=== PATIENT | male | born 1975 | race American Indian/Alaskan Native ===

== ENCOUNTER 2016-12-28 22:24 | Emergency (ER) | payer OTHER ==
[2016-12-28] MEDS ORDERED: NACL 0.9% 1000 ML 1,000 ML IV ONE (23:18)
--- NOTE | 2016-12-28 23:28 | Emergency Department Report ---
ED Seizure HPI - General Chief Complaint: Seizure Stated Complaint: AMS Time Seen by Provider: 12/28/16 23:00 Source: patient, EMS Mode of arrival: Stretcher Limitations: Altered Mental Status - History of Present Illness Initial Comments: Patient is a 41-year-old male presenting with EMS for altered mental status and reported seizure. As per the patient he was shaking called 911 and reports he lost consciosness prior to EMS arrival. As per EMS he was found unresponsive face down. Patient awoke on his own complaining of shaking limbs and now is having difficulty with speech. This does report multiple pelvic bottles all empty. However the patient reports he empties his medications into a large daily labeled pillbox. Medications reviewed by me, empty pill bottles: Methylprednisolone 20 one tablet taper pack Bupropion HCl XL 300 mg tablets #30 Cipro 500 mg #20 filled 12/07/2016 Zofran ODT 4 mg #12 filled for 12/23/16 Thorazine 100 mg #30 filled for 12/25/16 Buspirone HCl 50 mg tablets #30 filled 12/04/2016 Sertraline 50 mg tablets #30 filled 11/14/2016 Montelukast 10 mg tablets #30 filled 12/07/2016 hydrocodone Acetaminophen 5-25 mg tablets #12 filled for 12/23/16 Diazepam 10 mg tablets #60 filled 11/20/2016 Trazodone 50 mg tablets #30 filled 11/14/2016 Ibuprofen 600 mg tablets #30 filled for 12/23/16 Doxepin 100 mg tablets #30 filled for 12/09/16 - Related Data Allergies Allergy/AdvReac Type Severity Reaction Status Date / Time No Known Allergies Allergy Unverified 12/28/16 22:35 ED Review of Systems ROS: Stated complaint: AMS Other details as noted in HPI Comment: Unobtainable due to pts medical conditions ED Past Medical Hx - Past Medical History Previous Medical History?: Yes Hx Psychiatric Treatment: Yes (anxiety, depression) - Social History Smoking Status: Unknown if ever smoked Substance Use Type: Prescribed ED Physical Exam - General Limitations: Language Barrier, Altered Mental Status, Other (Dysarthric) - Head Head exam: Present: atraumatic, normocephalic - Eye Eye exam: Present: normal appearance. Absent: scleral icterus, conjunctival injection, nystagmus - ENT ENT exam: Present: mucous membranes moist - Neck Neck exam: Present: normal inspection - Respiratory Respiratory exam: Present: normal lung sounds bilaterally. Absent: respiratory distress, wheezes, rales, rhonchi - Cardiovascular Cardiovascular Exam: Present: regular rate, normal rhythm. Absent: irregular rhythm, systolic murmur, diastolic murmur, rubs, gallop - GI/Abdominal GI/Abdominal exam: Present: soft, normal bowel sounds. Absent: distended, tenderness, guarding, rebound - Rectal Rectal exam: Present: deferred - Extremities Exam Extremities exam: Present: normal inspection - Back Exam Back exam: Present: normal inspection - Neurological Exam Neurological exam: Present: alert, oriented X3, CN II-XII intact, other (did not walk the patient, (+)Dysarthric, (+)Tremulous at baseline) - Psychiatric Psychiatric exam: Present: anxious - Skin Skin exam: Present: warm, dry, intact, normal color. Absent: rash ED Course Vital Signs 12/28/16 12/28/16 12/28/16 22:21 22:30 22:35 Temperature 98.2 F Pulse Rate 105 H 100 H 102 H Respiratory 27 H 21 14 Rate Blood Pressure 127/79 127/83 127/79 Blood Pressure 127/79 [Right] O2 Sat by Pulse 97 96 96 Oximetry 12/28/16 12/28/16 12/28/16 22:41 22:51 23:00 Temperature Pulse Rate 105 H 99 H 101 H Respiratory 16 21 22 Rate Blood Pressure 127/79 132/85 137/89 Blood Pressure [Right] O2 Sat by Pulse 97 98 98 Oximetry 12/28/16 12/28/16 12/28/16 23:11 23:21 23:31 Temperature Pulse Rate 100 H 93 H 97 H Respiratory 28 H 16 18 Rate Blood Pressure 127/83 129/90 129/90 Blood Pressure [Right] O2 Sat by Pulse 98 99 99 Oximetry 12/28/16 12/28/16 12/29/16 23:41 23:51 00:00 Temperature Pulse Rate 90 124 H 115 H Respiratory 16 38 H 23 Rate Blood Pressure 129/90 129/90 114/69 Blood Pressure [Right] O2 Sat by Pulse 98 98 95 Oximetry 12/29/16 12/29/16 12/29/16 00:35 00:41 00:51 Temperature Pulse Rate 98 H 95 H 94 H Respiratory 12 17 13 Rate Blood Pressure 226/52 116/81 116/81 Blood Pressure [Right] O2 Sat by Pulse 97 100 98 Oximetry 12/29/16 12/29/16 12/29/16 01:00 01:11 01:21 Temperature Pulse Rate 91 H 89 95 H Respiratory 25 H 16 16 Rate Blood Pressure 119/85 114/69 114/69 Blood Pressure [Right] O2 Sat by Pulse 96 98 99 Oximetry 12/29/16 12/29/16 12/29/16 01:31 01:40 01:51 Temperature Pulse Rate 88 81 82 Respiratory 14 16 17 Rate Blood Pressure 116/86 125/86 125/86 Blood Pressure [Right] O2 Sat by Pulse 97 99 99 Oximetry 12/29/16 12/29/16 12/29/16 02:01 02:11 02:20 Temperature Pulse Rate 81 76 75 Respiratory 13 26 H 19 Rate Blood Pressure 133/82 133/82 118/78 Blood Pressure [Right] O2 Sat by Pulse 97 98 100 Oximetry 12/29/16 12/29/16 12/29/16 02:31 02:40 02:51 Temperature Pulse Rate 71 85 100 H Respiratory 19 11 L 16 Rate Blood Pressure 118/78 121/83 121/83 Blood Pressure [Right] O2 Sat by Pulse 98 99 Oximetry 12/29/16 12/29/16 12/29/16 03:00 03:11 03:20 Temperature Pulse Rate 74 74 70 Respiratory 20 14 20 Rate Blood Pressure 120/77 120/77 124/84 Blood Pressure [Right] O2 Sat by Pulse 97 99 97 Oximetry - Reevaluation(s) Reevaluation #1: 12/28/16 2350 Called to bedside for GTC seizure, witnessed by nurse and family, lasting seconds. Pt post ictal afterwards, patient arousable, following commands, FSG: HR: 120's Sinus tach on monitor, patient given ativan 2mg IVP and keppra 1000mg IVPB ED Medical Decision Making - Lab Data Result diagrams: 12/28/16 23:27 12/28/16 23:27 - EKG Data -: EKG Interpreted by Me ([id number]) EKG shows normal: sinus rhythm, axis (normal), intervals (QTc:490ms), ST-T waves ((-)St T changes no stemi) Rate: normal (95 bpm) - Radiology Data Radiology results: report reviewed Ct head: Neg for intracranial pathology - Medical Decision Making 0236: Case d/w [facility] [facility] neurologist Dr Allison, will accept for transfer for EEG and MRI Critical care attestation.: If time is entered above; I have spent that time in minutes in the direct care of this critically ill patient, excluding procedure time. ED Disposition Clinical Impression: Seizure Disposition: DC/TX ANOTHER TYPE HEALTHCARE Is pt being admited?: No Condition: Fair Additional Instructions: Pt to be transferred to [facility]
[2016-12-28] MEDS ORDERED: ATIVAN ONE (23:49)
[2016-12-28 23:52] LABS: Basophils % (Auto) 0.4 % (0.0-1.8); Eosinophils % (Auto) 0.2 % (0.0-4.3); Hematocrit 31.8 % (35.5-45.6); Hemoglobin 10.3 gm/dl (11.8-15.2); Mean Corpuscular HGB Conc 32 % (32-34); Mean Corpuscular Hemoglobin 28 pg (28-32); Mean Corpuscular Volume 87 fl (84-94); Platelet Count 246 K/mm3 (140-440); Red Blood Count 3.67 M/mm3 (3.65-5.03); White Blood Count 5.5 K/mm3 (4.5-11.0)
[2016-12-28 23:59] LABS: INR 1.14 (0.87-1.13)
[2016-12-28] MEDS ORDERED: ATIVAN IV ONE (23:59)
[2016-12-29] LABS: Partial Thromboplastin Time 21.9 Sec. (24.2-36.6)
[2016-12-29 00:10] LABS: Alanine Aminotransferase 16 units/L (7-56); Albumin 3.3 g/dL (3.9-5); Albumin/Globulin Ratio 1.3 %; Alkaline Phosphatase 54 units/L (35-129); Anion Gap 20 mmol/L; BUN/Creatinine Ratio 6.36; Bilirubin,Total < 0.2 mg/dL (0.1-1.2); Blood Urea Nitrogen 7 mg/dL (9-20); Calcium 7.8 mg/dL (8.4-10.2); Carbon Dioxide 19 mmol/L (22-30); Chloride 106.8 mmol/L (98-107); Glucose 159 mg/dL (75-100); Potassium 3.6 mmol/L (3.6-5.0); Sodium 142 mmol/L (137-145); Total Protein 5.9 g/dL (6.3-8.2)
[2016-12-29] MEDS ORDERED: KEPPRA 1,000 MG in D5W 100 ML IV ONE (00:13)
[2016-12-29] MEDS ORDERED: KEPPRA 1,000 MG/NS 0.75% 100ML 1,000 MG/100 ML BAG IV ONE ×2 (00:17→01:00)
--- NOTE | 2016-12-29 00:51 | Cat Scan Report ---
FINAL REPORT PROCEDURE: CT HEAD/BRAIN WO CON TECHNIQUE: Computerized tomography of the head was performed without contrast material. HISTORY: Altered Mental Status COMPARISON: No prior studies are available for comparison. FINDINGS: Skull and scalp: Normal. Paranasal sinuses: Normal. Ventricles and subarachnoid spaces: Normal. Cerebrum: No evidence of hemorrhage, acute infarction or mass . Cerebellum and brainstem: No evidence of hemorrhage, acute infarction or mass. Vasculature: Normal. Comments: None. IMPRESSION: Normal Examination
[2016-12-29] MEDS ORDERED: MAGNESIUM SULFATE 2GM/50ML 2 GM/50 ML BAG IV ONE (01:37)
[2016-12-29 01:50] LABS: Urine Drugs of Abuse Note Disclamer
[2016-12-29 01:55] LABS: Bilirubin,Urine NEG (Negative); Blood,Urine NEG (Negative); Ketones,Urine NEG (Negative); Leukocyte Esterase,Urine NEG (Negative); Nitrite,Urine NEG (Negative); Protein,Urine <15 mg/dL mg/dL (Negative); RBC,Urine < 1.0 /HPF (0.0-6.0); Urobilinogen,Urine < 2.0 mg/dL (<2.0)
[2016-12-29 01:57] LABS: Mucus,Urine 2+ /HPF
[2016-12-29 03:28] VITALS: BP 124/84
--- NOTE | 2016-12-29 09:24 | XRay Report ---
Single view chest: History altered mental status, shortness of breath. Findings: Normal cardiomediastinal silhouette. Trachea is midline. No consolidation, pneumothorax or pleural effusion. 3 mm nodule left lung probably noncalcified granuloma. Impression: No acute cardiopulmonary findings.
== END 2016-12-29 03:55 | disposition other institution (70) ==
LOC: ED 22:24
DX: R56.9 Unspecified convulsions (principal); F31.9 Bipolar disorder, unspecified; F41.9 Anxiety disorder, unspecified
CPT/HCPCS: 36415; 70450; 71010; 80053; 80307; 81001; 82140; 82962; 83735; 84443; 84484; 85025; 85610; 85730; 93005; 93010; 96361; 96365; 96366; 96368; 96375; 99285; G0480; J1953; J2060; J3475; J7030; 80320